=== PATIENT | female | born 1990 | race Caucasian/White ===

== ENCOUNTER 2017-12-09 16:54 | Emergency (ER) | payer OTHER ==
[~2017-12-09] VITALS: Ht 162.6 cm; Wt 65.1 kg
[~2017-12-09 16:54] MED LIST: 24HOUR ALLERGY10 MG PO; ALBUTEROL SULF8.5 GM IH; AMOXICILLIN500 MG PO; BACTRIM,SEPT1 TABLET PO; COLACE100 MG PO; LORTAB 5-325 M1 EACH PO; LOW-OGESTREL1 TABLET PO; MICRONOR0.35 MG; MIRALAX17 GM PO; MOTRIN800 MG PO; Motrin PO; NAPROSYN500 MG PO; PERCOCET 5/31 TABLET PO; PHENERGAN-CODE120 ML PO; PRENATAL TABLE1 EAC3 PO; SERTRALINE HCL100 MG PO; SERTRALINE HCL50 MG PO; TUMS500 MG PO; Tylenol Extra Streng PO; Vitamin D PO; ZANTAC150 MG PO
[2017-12-09 17:36] LABS: HEMATOCRIT 44.8 % (36.0-46.0); HEMOGLOBIN 15.5 G/DL (11.9-15.5); MCH 30.2 PG (29.0-34.0); MCHC 34.6 G/DL (30.0-36.0); MCV 87.3 FL (83-99); PLATELET COUNT 238 K/uL (156-360); RBC DIS.WIDTH-CV 11.5 % (11.8-14.6); RED BLOOD COUNT 5.13 M/uL (3.80-5.20); WHITE BLOOD COUNT 8.9 K/uL (4.1-10.2)
[2017-12-09 17:47] LABS: ALBUMIN 4.6 g/dL (3.2-4.8); CHLORIDE 105 mEq/L (99-109); POTASSIUM 4.4 mEq/L (3.7-5.4); SODIUM 139 mEq/L (136-147)
[2017-12-09 17:50] LABS: GLUCOSE 94 mg/dL (70-99)
[2017-12-09 17:52] LABS: TOTAL BILIRUBIN 0.5 mg/dL (0.0-1.0)
[2017-12-09 17:53] LABS: ALKALINE PHOSPHATASE 105 IU/L (3-129); CREATININE 0.8 mg/dL (0.6-1.3); GFR ESTIMATE (CALCULATED) > 59 mL/min/
[2017-12-09 17:54] LABS: UREA NITROGEN (BUN) 10 mg/dL (9-23)
[2017-12-09 17:55] LABS: AST (GOT) 27 IU/L (2-34)
[2017-12-09 17:56] LABS: ALT (GPT) 36 IU/L (3-49)
[2017-12-09 17:57] LABS: LIPASE 39 U/L (1.0-51.0)
[2017-12-09 18:05] LABS: QUANTITATIVE HCG < 4.0 MIU/ML
[2017-12-09 18:20] LABS: APPEARANCE CLEAR ((CLEAR)); BILIRUBIN NEGATIVE; BLOOD NEGATIVE; COLOR STRAW ((YELLOW)); GLUCOSE (STRIP) NEGATIVE; KETONES NEGATIVE; LEUKOCYTES NEGATIVE; NITRITE NEGATIVE; PROTEIN (STRIP) NEGATIVE; SPECIFIC GRAVITY 1.005 (1.000-1.030); UCUL ADDED? NO; UROBILINOGEN 0.2 MG/DL (0.2-1.0)
[2017-12-09 20:52] VITALS: BP 127/80
== END 2017-12-09 20:53 | disposition home or self-care (01) ==
LOC: EME 16:54
DX: R10.11 Right upper quadrant pain (principal); R11.0 Nausea; M54.9 Dorsalgia, unspecified; R68.83 Chills (without fever); Z90.49 Acquired absence of other specified parts of digestive tract; Z97.5 Presence of (intrauterine) contraceptive device; Z87.891 Personal history of nicotine dependence
CPT/HCPCS: 76705; 80053; 81003; 83690; 84702; 85027; 99281; 99284